=== PATIENT | male | born 1960 | race Caucasian/White ===

== ENCOUNTER 2017-08-29 11:10 | Inpatient (IN) | payer BC ==
[~2017-08-29] VITALS: Ht 180.3 cm; Wt 81.6 kg
[2017-08-29 11:56] VITALS: BP 162/111; PULSE 79; TEMP 97.6
[2017-08-29 13:03] VITALS: BP 148/90; PULSE 71; TEMP 97.6
[2017-08-29 13:24] LABS: MAGNESIUM 2.1 mg/dL (1.6-2.3)
[2017-08-29 13:45] LABS: TROPONIN-I 0.735 ng/mL (0.000-0.034)
[2017-08-29 15:07] VITALS: BP 138/89; PULSE 73; TEMP 97.8
[2017-08-29 16:19] LABS: TROPONIN-I 0.595 ng/mL (0.000-0.034)
[2017-08-29 20:15] VITALS: BP 159/96; PULSE 70; TEMP 98
[2017-08-30] VITALS (431 sets, daily range): BP systolic 108–175; BP diastolic 82–113; PULSE 55–81; TEMP 97.6–98.2; O2SAT 93–99
[2017-08-30 06:46] LABS: HEMATOCRIT 45.3 % (42.0-52.0); HEMOGLOBIN 15.4 g/dl (13.5-18.0); MEAN CELL VOLUME 91 fl (80.0-100.0); MEAN CORPUSCULAR HEMOGLOBIN 31 pg (27.0-31.0); MEAN CORPUSCULAR HGB CONC 34 g/dl (33.0-37.0); MEAN PLATELET VOLUME 8.9 fl (7.4-10.4); PLATELET COUNT 263 K/mm3 (130-400); RED BLOOD COUNT 4.97 M/mm3 (4.20-5.60); WHITE BLOOD COUNT 7.6 K/mm3 (4.8-10.8)
[2017-08-30 07:02] LABS: CALCIUM 8.8 mg/dL (8.4-10.2); CREATININE, serum 0.86 mg/dL (0.66-1.25); POTASSIUM 4.2 mmol/L (3.4-5.0)
[2017-08-30 07:31] LABS: TROPONIN-I 0.213 ng/mL (0.000-0.034)
[2017-08-30 09:31] LABS: PROTHROMBIN TIME 10.5 SECONDS (9.7-12.8)
[2017-08-30] MEDS ORDERED: GICOCKTAIL PO (10:29)
[2017-08-31] VITALS (602 sets, daily range): BP systolic 115–153; BP diastolic 79–111; PULSE 60; TEMP 98–98.2; O2SAT 88–100
[2017-08-31 05:48] LABS: HEMATOCRIT 42.3 % (42.0-52.0); HEMOGLOBIN 14.3 g/dl (13.5-18.0); MEAN CELL VOLUME 92 fl (80.0-100.0); MEAN CORPUSCULAR HEMOGLOBIN 31 pg (27.0-31.0); MEAN CORPUSCULAR HGB CONC 34 g/dl (33.0-37.0); MEAN PLATELET VOLUME 9.1 fl (7.4-10.4); PLATELET COUNT 251 K/mm3 (130-400); RED BLOOD COUNT 4.61 M/mm3 (4.20-5.60); WHITE BLOOD COUNT 11.7 K/mm3 (4.8-10.8)
[2017-08-31 05:59] LABS: CALCIUM 8.7 mg/dL (8.4-10.2); CREATININE, serum 0.78 mg/dL (0.66-1.25); POTASSIUM 3.5 mmol/L (3.4-5.0)
[2017-08-31] MEDS ORDERED: NITROSTAT0.4 MG/TAB SL (10:32)
[2017-08-31] MEDS ORDERED: ASPIRIN E.C. 8181 MG PO (10:32)
[2017-08-31] MEDS ORDERED: TYLENOL 325MG325 MG PO (10:32)
[2017-08-31] MEDS ORDERED: BRILINTA90 MG PO (10:32)
[2017-08-31] MEDS ORDERED: LIPITOR 80MG80 MG PO (10:32)
[2017-08-31] MEDS ORDERED: LOPRESSOR 550 MG/TAB PO (10:32)
[2017-08-31] MEDS ORDERED: ZESTRIL 20MG TA20 MG PO (10:32)
[2017-08-31] MEDS ORDERED: SYNTHROID 0.0.025 MG PO (10:32)
== END 2017-08-31 11:55 | disposition home or self-care (01) | DRG 246 ==
LOC: ICU 11:10 → PEDS 11:10 → ICU 08-30 10:37
PROVIDERS: Internal Medicine; Internal Medicine Cardiovascular Disease
PROC: 027136Z Dilation of Coronary Artery, Two Arteries with Three Drug-eluting Intraluminal Devices, Percutaneous Approach (ICD-10-PCS; principal; 2017-08-30)
PROC: 0270346 Dilation of Coronary Artery, One Artery, Bifurcation, with Drug-eluting Intraluminal Device, Percutaneous Approach (ICD-10-PCS; 2017-08-30)
PROC: 02713ZZ Dilation of Coronary Artery, Two Arteries, Percutaneous Approach (ICD-10-PCS; 2017-08-30)
PROC: B2111ZZ Fluoroscopy of Multiple Coronary Arteries using Low Osmolar Contrast (ICD-10-PCS; 2017-08-30)
DX: I21.4 Non-ST elevation (NSTEMI) myocardial infarction (principal); T82.898A Other specified complication of vascular prosthetic devices, implants and grafts, initial encounter; E11.9 Type 2 diabetes mellitus without complications; I10 Essential (primary) hypertension; F17.210 Nicotine dependence, cigarettes, uncomplicated; I25.10 Atherosclerotic heart disease of native coronary artery without angina pectoris
CPT/HCPCS: 99223-AI; 99232-AI; 99239; C1725; C1760; C1769; C1874; C1887; C1894; C9600; C9601; J0583; J1650; J2250; J3010; J7030